=== PATIENT | female | born 1995 | race Caucasian/White ===

== ENCOUNTER 2017-02-14 12:00 | Emergency (ER) | payer BC ==
[~2017-02-14] VITALS: Ht 157.5 cm; Wt 64.8 kg
[2017-02-14 12:04] VITALS: TEMP 36.3; Ht 157.5 cm; Wt 64.8 kg
[2017-02-14] MEDS ORDERED: SODIUM CHLORIDE 0.9% 1000ML 1,000 ML IV STA (12:50)
[2017-02-14] MEDS ORDERED: JNLF153028 PO (13:05)
--- NOTE | 2017-02-14 13:20 | DIAGNOSTIC IMAGING REPORT ---
CHEST ONE VIEW PORTABLE CLINICAL HISTORY: dizziness COMPARISON STUDY: No previous studies for comparison. FINDINGS: The cardiac and mediastinal contours are normal. There is no evidence of focal pulmonary consolidation. There is no evidence of failure. No pleural effusions are visualized.[ IMPRESSION: No active disease in the chest. Electronically signed by: Ja Gan M.D. 02/14/2017 1:19 PM Dictated Date/Time: 02/14/2017 1:18 PM
[2017-02-14 13:28] LABS: BASO ABS # 0.07 K/uL (0-0.2); COMPLETE YES; HEMATOCRIT 42.2 % (37-47); IG% 0.1 %; LYMPH ABS # 2.32 K/uL (1.2-3.4); MEAN CELL VOLUME 93.8 fL (80-100); MEAN CORPUSCULAR HEMOGLOBIN 32.4 pg (25-34); MEAN CORPUSCULAR HGB CONC 34.6 g/dl (32-36); MEAN PLATELET VOLUME 10.1 fL (7.4-10.4); NEUT % 54.9 %; PLATELET COUNT 232 K/uL (130-400); WHITE BLOOD COUNT 7.03 K/uL (4.8-10.8)
[2017-02-14 13:40] LABS: URINE APPEARANCE CLEAR (CLEAR); URINE BILIRUBIN NEG (NEG); URINE COLOR YELLOW; URINE NITRITE NEG (NEG); URINE SPECIFIC GRAVITY 1.012 (1.000-1.030); UROBILINOGEN NEG (NEG)
[2017-02-14 13:46] LABS: BUN/CREATININE RATIO 14.6 (10-20); CALCIUM 8.4 mg/dl (8.5-10.1); CREATININE 0.92 mg/dl (0.60-1.20); MAGNESIUM 2.3 mg/dl (1.8-2.4); POTASSIUM 3.8 mmol/L (3.5-5.1)
[2017-02-14 13:50] LABS: MANUAL MICROSCOPIC REQUIRED? YES; REVIEW REQ? NO
[2017-02-14 13:51] LABS: BENZODIAZEPINE, URINE NEG (NEG); COCAINE,URINE NEG (NEG); PHENCYCLIDINE, URINE NEG (NEG)
[2017-02-14 13:54] LABS: PREG INTERNAL NEGATIVE QC NEG CLEAR BACKGROUND; PREG INTERNAL POSITIVE QC POS CONTROL LINE
[2017-02-14 13:57] LABS: PHOSPHORUS 2.5 mg/dl (2.5-4.9); THYROID STIMULATING HORMONE 0.98 uIu/ml (0.300-4.500)
[2017-02-14 14:10] LABS: URINE BACTERIA 4+ (NEG); URINE WBC >30 /hpf (0-5)
--- NOTE | 2017-02-14 14:43 | DIAGNOSTIC IMAGING REPORT ---
CT OF THE HEAD WITHOUT CONTRAST CLINICAL HISTORY: Dizziness. Previous history of abnormal growth around pituitary. COMPARISON STUDY: No previous studies for comparison. CT DOSE: 537.48 mGy.cm TECHNIQUE: Helical axial images of the head were obtained without IV contrast. Automated exposure control was utilized for the study. A dose lowering technique was utilized adhering to the principles of ALARA. FINDINGS: No acute intracranial hemorrhage, midline shift or mass effect is present. Ventricular system is normal. Basilar cisterns are patent. There are no extra-axial collections. Aceves-white differentiation is maintained. There are no findings to suggest acute dural sinus thrombosis or acute territorial infarct. There are no significant calvarial abnormalities. Visualized portions of the sinuses and mastoid air cells are clear. No sellar abnormality is identified by CT although this region is suboptimally assessed by CT. IMPRESSION: No acute intracranial findings. Electronically signed by: Emir Erwin M.D. 02/14/2017 2:42 PM Dictated Date/Time: 02/14/2017 2:37 PM
[2017-02-14 15:45] VITALS: BP 120/74; PULSE 65; O2SAT 97
--- NOTE | 2017-02-14 17:51 | EMERGENCY ROOM VISIT NOTE ---
ED Visit Note First contact with patient: 12:05 Chief Complaint: I've been having dizziness. History of Present Illness: Ms. Moore is a 22-year-old white female who ambulates into the ED complaining of dizziness. Historically patient reports 4 years ago she was having some mild visual changes. 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 They did not feel this was the cause of her visual changes and no follow-up from 4 years ago was made. Patient reports over the last 2 weeks she's had 4 episodes of transient and self resolving dizziness. These episodes come on different times of the day and in different situations from lying in bed to walking. They self resolve after approximately 30 seconds. Patient reports approximately one hour ago she was walking out of class and talking to her brother. She then had an acute onset of a spinning sensation and felt like she was going to pass out. She denies any pre-symptom normal sensations or neurological symptoms. She reports that her brother helped her sit down. A bypass or offered her a nutrition bar and she reports she felt better. She did not identify any aggravating or alleviating factors related to the dizziness. Associated with the dizziness she reports that she felt "weak kneed". She has not taken any medications except for the nutrient bar for her symptoms. And she denies any other associated symptoms. She denies any recent head trauma, lightheadedness, headaches, visual changes, hearing changes, difficulty speaking, difficulty swallowing, difficulty ambulating/coordinating body movements, skin eruptions, skin color changes, diaphoresis, neck or back pain, chest pain, palpitations, shortness of breath, cough, wheezing, previous clots, claudication, cramping, recent surgery/ inactivity/extended travel, abdominal pain, decreased appetite, weight loss/gain , nausea, vomiting, diarrhea, constipation, rectal bleeding, black/tarry stools , urinary symptoms, hematuria, flank pain, vaginal bleeding, vaginal discharge, extremity weakness/numbness/tingling, joint swelling/redness, recent insect bites, recent travel outside the [place]. Review of Systems: As noted above in history of present illness. All body systems were reviewed and found to be negative as noted above. Past Medical History: As previously noted. Current Medications: control. Allergies to Medications: Patient denies. Social History: Patient is not employed; she feels safe in her home environment ; she denies tobacco use, alcohol and illicit drug use. Physical Examination: Vital Signs: Date Time Temp Pulse Resp B/P (MAP) Pulse Ox O2 Delivery O2 Flow Rate FiO2 02/14/17 15:45 65 18 120/74 97 02/14/17 14:59 55 15 116/61 99 Room Air 02/14/17 14:07 58 111/71 53 121/74 79 125/75 02/14/17 14:00 56 18 120/72 98 Room Air 02/14/17 13:34 57 18 117/75 98 Room Air 02/14/17 13:04 60 02/14/17 13:00 58 17 114/63 97 Room Air 02/14/17 12:04 36.3 62 18 138/81 99 Room Air GENERAL: 22-year-old female in mild distress due to symptoms, nontoxic-appearing , afebrile and hemodynamically stable. NEUROLOGICAL: Awake, alert and oriented to person, place and time. Answering questions appropriately and following commands. Normal gait. Good hand eye coordination. Romberg test negative. Pronator drift test negative. Cranial nerves II through XII grossly intact. Good short-term and long-term recall. Able to spell and count backwards. Normal rapid alternate movements of the hands and fingers. Normal heel gordon test. SKIN: Warm, dry and pink. No soft tissue eruptions or trauma noted. HEENT: Atraumatic and normocephalic. External ears are nontender. Auditory canals are pink and patent. Tympanic membranes are pearly mares with normal light reflex; no erythema or bulging. PERRLA. EOMI without nystagmus. Sclera white and conjunctiva pink. No drainage from naris. Airway patent. Speech normal and clear. No lymphadenopathy. Trachea midline. No jugular venous distention. Carotid bruits. BACK: No tenderness over the bony spine. Range of motion of the cervical spine. No CVA tenderness. THORAX: Lungs sounds are clear to auscultation and equal bilaterally with symmetrical chest wall. No wheezing, rales or rhonchi. No crepitus, tenderness , subcutaneous air or deformities noted. HEART: Regular rate and rhythm. No gallops, rubs or murmurs are appreciated. PMI is not displaced. No lifts, heaves or thrills. ABDOMEN: Flat, soft and nontender. Positive bowel sounds in all quadrants. No guarding, rigidity or organomegaly. EXTREMITIES: Moves all extremities well on command and with purpose. All distal neurovascular statuses are intact and equal bilaterally. No calf tenderness or cords. All range of motion and 5/5 muscle strength in all movements of the upper and lower extremities. ED Course: Patient is assessed as noted above. Patient's medication list was reviewed. Laboratory Testing: Test 02/14/17 12:15 02/14/17 13:10 Range/Units Urine Color YELLOW Urine Appearance CLEAR CLEAR Urine pH 7.0 4.5-7.5 Urine Specific [place] 1.012 1.000-1.030 Urine Protein NEG NEG Urine Glucose (UA) NEG NEG Urine Ketones NEG NEG Urine Occult Blood NEG NEG Urine Nitrite NEG NEG Urine Bilirubin NEG NEG Urine Urobilinogen NEG NEG Urine Leukocyte Esterase MODERATE NEG Urine WBC (Auto) 0-5 /hpf Urine RBC (Auto) 0-4 /hpf Urine Hyaline Casts (Auto) 0-5 /lpf Urine Epithelial Cells (Auto) 0-5 /lpf Urine Bacteria (Auto) NEG Urine RBC 5-10 0-4 /hpf Urine WBC >30 0-5 /hpf Urine Epithelial Cells >30 0-5 /lpf Urine Bacteria 4+ NEG Urine Test NEG NEG Urine Opiates Screen NEG NEG Urine Methadone, Qualitative NEG NEG Urine Barbiturates NEG NEG Urine Phencyclidine (PCP) Level NEG NEG Ur Amphetamine/Methamphetamine NEG NEG MDMA (Ecstasy) Screen NEG NEG Urine Benzodiazepines Screen NEG NEG Urine Cocaine Metabolite NEG NEG Urine Marijuana (THC) NEG NEG White Blood Count 7.03 4.8-10.8 K/uL Red Blood Count 4.50 4.2-5.4 M/uL Hemoglobin 14.6 12.0-16.0 g/dL Hematocrit 42.2 37-47 % Mean Corpuscular Volume 93.8 80-100 fL Mean Corpuscular Hemoglobin 32.4 25-34 pg Mean Corpuscular Hemoglobin Concent 34.6 32-36 g/dl Platelet Count 232 130-400 K/uL Mean Platelet Volume 10.1 7.4-10.4 fL Neutrophils (%) (Auto) 54.9 % Lymphocytes (%) (Auto) 33.0 % Monocytes (%) (Auto) 8.0 % Eosinophils (%) (Auto) 3.0 % Basophils (%) (Auto) 1.0 % Neutrophils # (Auto) 3.86 1.4-6.5 K/uL Lymphocytes # (Auto) 2.32 1.2-3.4 K/uL Monocytes # (Auto) 0.56 0.11-0.59 K/uL Eosinophils # (Auto) 0.21 0-0.5 K/uL Basophils # (Auto) 0.07 0-0.2 K/uL RDW Standard Deviation 43.0 36.4-46.3 fL RDW Coefficient of Variation 12.5 11.5-14.5 % Immature Granulocyte % (Auto) 0.1 % Immature Granulocyte # (Auto) 0.01 0.00-0.02 K/uL Sodium Level 138 136-145 mmol/L Potassium Level 3.8 3.5-5.1 mmol/L Chloride Level 105 98-107 mmol/L Carbon Dioxide Level 26 21-32 mmol/L Anion Gap 7.0 3-11 mmol/L Blood Urea Nitrogen 13 7-18 mg/dl Creatinine 0.92 0.60-1.20 mg/dl Est Creatinine Clear Calc Drug Dose 86.2 ml/min Estimated GFR () 103.9 Estimated GFR (Non- 89.6 BUN/Creatinine Ratio 14.6 10-20 Random Glucose 78 70-99 mg/dl Calcium Level 8.4 8.5-10.1 mg/dl Phosphorus Level 2.5 2.5-4.9 mg/dl Magnesium Level 2.3 1.8-2.4 mg/dl Total Bilirubin 1.2 0.2-1 mg/dl Direct Bilirubin 0.2 0-0.2 mg/dl Aspartate Amino Transf (AST/SGOT) 27 15-37 U/L Alanine Aminotransferase (ALT/SGPT) 22 12-78 U/L Alkaline Phosphatase 91 45-117 U/L Total Protein 7.1 6.4-8.2 gm/dl Albumin 3.5 3.4-5.0 gm/dl Thyroid Stimulating Hormone (TSH) 0.980 0.300-4.500 uIu/ml Urine Culture: Pending EKG: Was read by myself and shows sinus bradycardia with a ventricular rate of 54 bpm. Normal axis, intervals and complexes. No ischemic changes indicating injury, ischemia or infarction. Chest X-Ray: Was read by myself and the radiologist showing no acute infiltrates , effusions or pneumothorax. Normal heart silhouette and bony anatomy. Head CT: Was reviewed by myself and read by the radiologist showing no acute intracranial findings. Patient was hydrated with normal saline. Patient was reassessed multiple times during her stay in the emergency department. Patient's case was reviewed with Dr. Crouch; we agreed on diagnostic approach, treatment, disposition and plan. Patient was educated at today's findings and instructed on her treatment plan; she verbalizes understanding and agreement with this plan. Clinical Impression: Dizziness. Decision-Making: Initially my differential diagnosis I considered anterior infection, electrolyte abnormality, metabolic disturbance, hypoglycemia, orthostatic hypotension, intercranial mass, thyroid dysfunction and other causes. Disposition: Patient discharged home in stable condition; prior to departure she was reassessed and subjectively reported that she was pain and symptom-free since being in the ED. Additionally patient requested that I contact her mother who is a nurse from the [place] area and review her case; I did that and informed her mother that I was going to have her follow-up with neurology. She seemed happy with the care. Plan: Patient was encouraged to stay well-hydrated. Patient was encouraged to move more purposeful and slowly. Patient was encouraged to sit down immediately upon the onset of dizziness. Patient was encouraged [facility] with [facility] and [facility]. Patient was encouraged return ED for recurrent symptoms, any acute episode of syncope, any new abnormal neurological symptoms, fevers or any new/concerning symptoms.
== END 2017-02-14 15:45 | disposition home or self-care (01) ==
LOC: C.EDB 12:03 → C.EDC 15:45
DX: R42 Dizziness and giddiness (principal)